=== PATIENT | male | born 1945 | race Caucasian/White ===

== ENCOUNTER 2021-07-12 09:59 | Outpatient (CLI) | payer MEDICARE, OTHER ==
[2021-07-12 20:11] LABS: SARS-CoV-2 PCR by NAA Not Detected (NotDetected)
== END 2021-07-12 10:00 | disposition home or self-care (01) ==
LOC: CSHLAB 09:59
PROVIDERS: ATTEND Internal Medicine
DX: Z20.822 Contact with and (suspected) exposure to COVID-19 (principal)
CPT/HCPCS: U0003; U0005

== ENCOUNTER 2021-07-15 07:38 | Outpatient (CLI) | payer MEDICARE, OTHER | END 2021-07-15 07:39 | disposition home or self-care (01) | LOC: CSHCP 07:38 | PROVIDERS: ATTEND Internal Medicine Critical Care Medicine | DX: R07.1 Chest pain on breathing (principal); R94.2 Abnormal results of pulmonary function studies | CPT/HCPCS: 94060; 94726; 94729; 94760 ==

== ENCOUNTER 2022-06-10 06:22 | Observation (INO) | payer MEDICARE, OTHER ==
[2022-06-10 07:21] LABS: #Eosinphils 0.1 10x3/uL (0.0-0.5); #Monocytes 0.7 10x3/uL (0.0-1.1); #Neutrophils 3.8 10x3/uL (1.5-8.4); %Basophils 0.3 % (0.0-2.0); %Lymphocytes 21.8 % (18.0-47.0); %Monocytes 11.4 % (0.0-10.0); Hemoglobin 14.6 g/dL (13.5-17.5); Mean Corpuscular HGB CONC 32.9 g/dL (32.0-36.0); Mean Corpuscular Hemoglobin 31.6 pg (27.0-33.0); Mean Corpuscular Volume 96.1 fl (81.2-95.1); Mean Platelet Volume 10.3 fl (7.4-10.4); Platelet Count 157 10x3/uL (150-450); RBC Distribution Width 14.3 % (11.5-14.5); Red Blood Cell (RBC) Count 4.62 10x6/uL (4.32-5.72); White Blood Cell (WBC) Count 5.8 10x3/uL (3.5-10.5)
[2022-06-10] MEDS ORDERED: Heparin 10,000 UNITS/ 10 ML VIAL ONE (07:24)
[2022-06-10] MEDS ORDERED: Lidocaine 1% (PF) 30 ML VIAL ONE (07:24)
[2022-06-10 07:28] LABS: PTT 25.2 sec (22.0-33.0); Prothrombin Time 10.7 sec (9.5-12.1)
[2022-06-10 07:30] LABS: ALT (SGPT) 20 U/L (8-55); AST (SGOT) 21 U/L (5-34); Albumin 4.3 g/dL (3.4-4.8); Alkaline Phosphatase 62 U/L (40-110); Anion Gap 15 mmol/L (10-20); BUN (Urea Nitrogen) 20 mg/dL (8.4-25.7); Bilirubin, Total 0.6 mg/dL (0.2-1.2); Calc. Creatinine Clearance 0 mL/min (70-130); Calcium 9.8 mg/dL (7.8-10.44); Carbon Dioxide 21 mmol/L (23-31); Chloride 109 mmol/L (98-107); Estimated GFR 66; Globulin 2.5 g/dL (2.4-3.5); Glucose 109 mg/dL (83-110); Potassium 4.6 mmol/L (3.5-5.1); Protein, Total 6.8 g/dL (5.8-8.1); Sodium 140 mmol/L (136-145)
[2022-06-10] MEDS ORDERED: Fentanyl 100 MCG/2 ML VIAL ONE (09:41)
[2022-06-10] MEDS ORDERED: Midazolam HCl 2 mg/2 ml Vial ONE ×2 (09:41→10:46)
[2022-06-10] MEDS ORDERED: Iopamidol 300 61% 100 ML VIAL FS ONE (09:45)
[2022-06-10] MEDS ORDERED: Loperamide HCl 2 MG CAP PO PRN (11:43)
[2022-06-10] MEDS ORDERED: Senokot S 8.6-50 MG TAB PO PRN (11:43)
[2022-06-10] MEDS ORDERED: Acetaminophen 325 MG TAB PO PRN (11:43)
[2022-06-10] MEDS ORDERED: Ondansetron ODT 4 MG TAB PO PRN (11:43)
[2022-06-10] MEDS ORDERED: Calcium Carbonate 500 MG ChewTAB PO PRN (11:43)
[2022-06-10] MEDS ORDERED: HYDROcodone/Acetaminophen 5/325 mg Tablet PO PRN ×2 (11:43)
[2022-06-10] MEDS ORDERED: Zolpidem Tartrate 5 MG TAB PO PRN (11:43)
[2022-06-10] MEDS ORDERED: Nitroglycerin 0.4 MG TAB (25 Tab Bottle) SL PRN (11:47)
[2022-06-10] MEDS ORDERED: Acetaminophen/Codeine 30-300mg Tablet PO PRN ×2 (11:47)
[2022-06-10] MEDS ORDERED: Sodium Chloride 0.9% 200 ML IV PRN (11:47)
[2022-06-10] MEDS ORDERED: HYDROcodone/Acetaminophen 5/325 mg Tablet ONE (12:40)
[2022-06-10 13:56] VITALS: BMI 34.0
[2022-06-10] MEDS: Ipratropium/Albuterol 3 ML NEB NEB SCH (19:45)
[2022-06-10] MEDS: Mometasone 100 MCG/PUFF (1 INHALER) INH SCH (20:15)
[2022-06-11] MEDS: Ipratropium/Albuterol 3 ML NEB NEB SCH ×2 (01:08→07:01)
[2022-06-11] MEDS: Mometasone 100 MCG/PUFF (1 INHALER) INH SCH (07:00)
[2022-06-11 08:31] LABS: #Eosinphils 0.1 10x3/uL (0.0-0.5); #Monocytes 0.7 10x3/uL (0.0-1.1); #Neutrophils 5.2 10x3/uL (1.5-8.4); %Basophils 0.1 % (0.0-2.0); %Lymphocytes 14.3 % (18.0-47.0); %Monocytes 9.4 % (0.0-10.0); %Neutrophils 74.9 % (40.0-75.0); Hemoglobin 13.9 g/dL (13.5-17.5); Mean Corpuscular HGB CONC 32.9 g/dL (32.0-36.0); Mean Corpuscular Hemoglobin 32.1 pg (27.0-33.0); Mean Corpuscular Volume 97.5 fl (81.2-95.1); Mean Platelet Volume 9.5 fl (7.4-10.4); Platelet Count 141 10x3/uL (150-450); RBC Distribution Width 14.4 % (11.5-14.5); Red Blood Cell (RBC) Count 4.33 10x6/uL (4.32-5.72)
[2022-06-11 08:58] LABS: Anion Gap 16 mmol/L (10-20); BUN (Urea Nitrogen) 15 mg/dL (8.4-25.7); Calc. Creatinine Clearance 94 mL/min (70-130); Calcium 9.9 mg/dL (7.8-10.44); Carbon Dioxide 21 mmol/L (23-31); Chloride 106 mmol/L (98-107); Estimated GFR 80; Glucose 117 mg/dL (83-110); Potassium 4.6 mmol/L (3.5-5.1); Sodium 138 mmol/L (136-145)
[2022-06-11] MEDS ORDERED: Losartan 25 MG TAB PO SCH (09:00)
[2022-06-11] MEDS ORDERED: Clopidogrel Bisulfate 75 MG TAB PO SCH (09:00)
[2022-06-11] MEDS ORDERED: Finasteride 5 MG TAB PO SCH (09:00)
[2022-06-11] MEDS ORDERED: Atenolol 25 MG TAB PO SCH (09:00)
[2022-06-11] MEDS ORDERED: Cholecalciferol 1,000 UNITS (25 MCG) TAB PO SCH (09:00)
[2022-06-11] MEDS ORDERED: Aspirin 81 mg Enteric Coated Tablet PO SCH (09:00)
[2022-06-11] MEDS ORDERED: Tamsulosin HCl 0.4 MG CAP PO SCH (09:00)
[2022-06-11] MEDS ORDERED: Senokot S 8.6-50 MG TAB PO PRN (10:15)
[2022-06-11 10:28] VITALS: TEMP 98.2
[2022-06-11 13:16] VITALS: BP 114/68
[2022-06-11] MEDS ORDERED: Rosuvastatin 20 MG TAB PO SCH (21:00)
== END 2022-06-11 14:13 | disposition home or self-care (01) ==
LOC: CSHSDC 06:22 → CSHTELE 13:36
PROVIDERS: ADMIT Specialist; ATTEND Specialist
DX: I70.1 Atherosclerosis of renal artery (principal); I71.40 Abdominal aortic aneurysm, without rupture, unspecified; I25.10 Atherosclerotic heart disease of native coronary artery without angina pectoris; I10 Essential (primary) hypertension; E78.5 Hyperlipidemia, unspecified; Z79.82 Long term (current) use of aspirin; Z79.899 Other long term (current) drug therapy; G47.33 Obstructive sleep apnea (adult) (pediatric)
CPT/HCPCS: 34709; 34713; 37242; 80048; 80053; 82962; 85025 ×2; 85347; 85610; 85730; 94640 ×2; C1758; C1760; C1769 ×3; C1887; C1889 ×2; C1894 ×2; G0378 ×2; 36415; 36416; 75625; 75736; 93005; 93010; 94664; 99152; 99153; J1644; J2001; J2250; J3010; Q0162; Q9967